=== PATIENT | male | born 1960 | race Caucasian/White ===

== ENCOUNTER 2016-05-01 01:05 | Emergency (ER) | payer SELFPAY ==
[~2016-05-01] VITALS: Ht 177.8 cm; Wt 77.1 kg
[2016-05-01] MEDS ORDERED: METRONIDAZOLE500 MG ORAL (01:47)
[2016-05-01] MEDS ORDERED: PERMETHRIN60 GM TOPIC (01:47)
[2016-05-01 02:00] VITALS: BP 149/90
[2016-05-01 02:10] VITALS: BP 149/90
--- NOTE | 2016-05-02 05:29 | Emergency Room Report ---
History of Present Illness General Chief Complaint: General Complaint Source: Patient Present Illness HPI 56-year-old male presents to ED stating that he has "parasites". Patient states that he has an infestation in his apartment they visit with his fianc. Patient states he went to several other hospitals and will prescribe medications. States the medications are helping but he ran out. States he was prescribed Flagyl. Patient states that his skin is very itchy and he feels that there are parasites coming out of his skin. Denies any pain. Denies any fevers or chills. Denies any nausea or vomiting and no aggravating relieving factors. Denies any other associated symptoms Allergies: Coded Allergies: CODEINE (Verified Allergy, Unknown, 05/01/16) PENICILLINS (Verified Allergy, Unknown, 05/01/16) SULFA (SULFONAMIDE ANTIBIOTICS) (Verified Allergy, Unknown, 05/01/16) Patient History Past Medical History: none Past Surgical History: none Pertinent Family History: none Social History: Denies: alcohol use, drug use, smoking Immunizations: UTD Reviewed Nursing Documentation: PMH: Agreed, PSxH: Agreed Review of Systems All Other Systems: negative except mentioned in HPI Physical Exam Vital Signs Date Time Temp Pulse Resp B/P Pulse Ox O2 Delivery O2 Flow Rate FiO2 05/01/16 01:11 98.4 89 18 164/94 98 Room Air Sp02 EP Interpretation: reviewed, normal General Appearance: no apparent distress, alert, GCS 15, non-toxic Head: normocephalic Eyes: bilateral eye PERRL, bilateral eye normal inspection ENT: hearing grossly normal, normal pharynx, no angioedema, normal voice Neck: normal inspection Respiratory: chest non-tender, lungs clear, normal breath sounds, speaking full sentences Cardiovascular #1: regular rate, rhythm, no edema Gastrointestinal: normal bowel sounds, non tender, soft, non-distended, no guarding, no rebound Rectal: deferred Genitourinary: no CVA tenderness Musculoskeletal: normal inspection Neurologic: alert, oriented x3, responsive, motor strength/tone normal, sensory intact, speech normal Psychiatric: anxious Skin: other - excoriations to skin diffusely. linear Lymphatic: normal inspection Medical Decision Making Diagnostic Impression: Primary Impression: Rash of entire body Additional Impression: Behavioral problem ER Course Hospital Course 56-year-old male presents to ED with rash to body Differential diagnoses include: Cellulitis, dermatitis, insect bite, abscess Clinical course Patient placed on stretcher. After initial history, physical exam reveals a male that is very anxious. On exam there are diffuse excoriations to the body. Skin is erythematous from scratching. Patient is showing me samples of "parasites" that he removed from his body. I did not identify any parasites but notes skin tissue. I am suspecting patient is suffering from scabies. However I also believe patient has some behavioral disorder versus drug abuse i.e. amphetamines Diagnosis - rash of entire body, behavioral problem stable and discharged to home with prescription for Flagyl, Elimite. Instructed to followup with PMD. Instructed return to ED if symptoms recur or worsen Last Vital Signs Date Time Temp Pulse Resp B/P Pulse Ox O2 Delivery O2 Flow Rate FiO2 05/01/16 02:10 98.4 85 17 149/90 99 Room Air Status: improved Disposition: HOME, SELF-CARE Condition: Stable Scripts Metronidazole* (FLAGYL*) 500 Mg Tablet 500 MG ORAL THREE TIMES A DAY, #21 TAB Prov: NICOLAS KURTZ M.D. 05/01/16 Permethrin* (ELIMITE*) 60 Gm Cream..g. 1 APPLIC TOPIC ONCE, #60 GM 0 Refills Apply cream from head to toe; leave on for 8-14 hours before washing off with water; may reapply in 1 week if live mites appear. Prov: NICOLAS KURTZ M.D. 05/01/16 Referrals: NOT CHOSEN [facility]/,REFERRING (PCP) Patient Instructions: Pruritus NICOLAS KURTZ M.D. May 02, 2016 05:29
== END 2016-05-01 02:10 | disposition home or self-care (01) ==
LOC: EMR 02:04
DX: R21 Rash and other nonspecific skin eruption (principal); F91.9 Conduct disorder, unspecified; Z88.6 Allergy status to analgesic agent; Z88.2 Allergy status to sulfonamides; Z88.0 Allergy status to penicillin
CPT/HCPCS: 99282